=== PATIENT | female | born 1990 | race Caucasian/White ===

== ENCOUNTER 2017-09-26 06:34 | Inpatient (IN) | payer SELFPAY ==
[~2017-09-26] VITALS: Ht 167.6 cm; Wt 63.6 kg
[2017-09-26] VITALS (19 sets, daily range): BP systolic 101–116; BP diastolic 55–72; PULSE 63–78; TEMP 97.8–99.6
[~2017-09-26 06:34] MED LIST: LOVENOX 3030 MG/0.3 IJ; MOTRIN 600600 MG/TAB PO; PERCOCET 325 MG1 TA2 PO; PRENATAL VITAMI1 TAB PO
[2017-09-26 11:23] LABS: BASO % 0.3 % (0.0-2.0); EOS # 0.2 (0.0-0.7); EOS % 1.8 % (0-4.0); GRAN # 6.4 (1.4-6.5); GRAN % 70.6 % (42.2-75.2); LYMPH % 21.6 % (20.0-51.0); MEAN CELL VOLUME 82 fl (80.0-100.0); MEAN CORPUSCULAR HGB CONC 34 g/dl (33.0-37.0); MEAN PLATELET VOLUME 11.3 fl (7.4-10.4); MONO # 0.5 (0.1-0.6); MONO % 5.3 % (1.7-9.3); PLATELET COUNT 223 K/mm3 (130-400); RED BLOOD COUNT 4.15 M/mm3 (4.10-5.30)
[2017-09-26 11:28] LABS: HEMATOCRIT 34.2 % (37.0-47.0); HEMOGLOBIN 11.6 g/dl (12.5-16.0); MEAN CORPUSCULAR HEMOGLOBIN 28 pg (27.0-31.0)
== END 2017-09-26 19:50 | disposition home or self-care (01) | DRG 775 ==
LOC: LDR
PROVIDERS: Obstetrics & Gynecology
PROC: 10E0XZZ Delivery of Products of Conception, External Approach (ICD-10-PCS; principal; 2017-09-26)
PROC: 3E033VJ Introduction of Other Hormone into Peripheral Vein, Percutaneous Approach (ICD-10-PCS; 2017-09-26)
DX: O36.4XX0 Maternal care for intrauterine death, not applicable or unspecified (principal); O35.1XX0 Maternal care for (suspected) chromosomal abnormality in fetus, not applicable or unspecified; Z3A.14 14 weeks gestation of pregnancy; Z37.1 Single stillbirth
CPT/HCPCS: J2590; J7120

== ENCOUNTER 2019-12-10 07:25 | Inpatient (IN) | payer BC ==
[~2019-12-10] VITALS: Ht 167.6 cm; Wt 74.1 kg
[2019-12-10] VITALS (36 sets, daily range): BP systolic 95–138; BP diastolic 51–76; PULSE 54–97; TEMP 97.4–98.8
[~2019-12-10 07:25] MED LIST changes: +LOVENOX 3030 MG/0.3 SQ; +PRENATAL TABLET PO
[2019-12-10] MEDS ORDERED: NATURAL IRON65 MG (07:48)
--- NOTE | 2019-12-10 08:15 | NUR ---
G4L1 at 39.3 weeks gestation to LDR3 with for induction of labor. Patient changed into gown and wedged to left side in bed. EFMs explained and applied. FHR 125 bpm and reactive. Irregular CTX per toco. VSS. Assessment completed and consents signed. 0800 IV started in left hand with labs drawn from site. LR infusing per protocol. Plan of care reviewed with patient and spouse. Call light within reach.
--- NOTE | 2019-12-10 08:30 | NUR ---
Pitocin started at 2mu per orders and protocol.
[2019-12-10 08:38] LABS: BASO % 0.3 % (0.0-2.0); EOS # 0.1 (0.0-0.7); GRAN # 7.5 (1.4-6.5); GRAN % 72.9 % (42.2-75.2); HEMOGLOBIN 11.9 g/dl (12.5-16.0); LYMPH % 19.2 % (20.0-51.0); MEAN CELL VOLUME 90 fl (80.0-100.0); MEAN CORPUSCULAR HEMOGLOBIN 31 pg (27.0-31.0); MEAN CORPUSCULAR HGB CONC 35 g/dl (33.0-37.0); MEAN PLATELET VOLUME 12.1 fl (7.4-10.4); MONO # 0.6 (0.1-0.6); MONO % 6.2 % (1.7-9.3); PLATELET COUNT 200 K/mm3 (130-400); RED BLOOD COUNT 3.83 M/mm3 (4.10-5.30); REDCELL DISTRIBUTION WIDTH-CV 13.5 % (11.5-14.5)
[2019-12-10 08:45] LABS: HEMATOCRIT 34.5 % (37.0-47.0)
--- NOTE | 2019-12-10 08:45 | NUR ---
Dr. Souza to room, reviews FHR tracing, SVE with AROM. /-2 with small amount of clear fluid noted. Plan of care reviewed.
--- NOTE | 2019-12-10 11:45 | NUR ---
Patient more uncomfortable with contractions, tense and breathing through them. Patient requesting epidural. IVF bolus started. CODING VALIDATOR notified.
--- NOTE | 2019-12-10 12:12 | NUR ---
1204 SEAN Westbrook to room to place epidural. Single shot administered at 1212 by SEAN Westbrook. Test dose administered at 1214 by SEAN Westbrook. See anesthesia record for details of procedure.
--- NOTE | 2019-12-10 14:46 | NUR ---
1420 Patient pushing with contractions, Dr. Souza on unit. 1435 Dr. Souza to room, patient prepped for delivery, continues to push with contractions. 1446 Spontaneous vaginal delivery of viable male infant by Dr. Souza. Cord clamped and cut and to the care of the nursery RN. 1449 Spontaneous delivery of placenta by Dr. Souza. Pitocin infusing at 333ml/hr per orders and protocol. Fundus firm, lochia WNL. Repair of 2nd degree laceration by Dr. Souza.
[2019-12-11 01:45] VITALS: BP 107/55; PULSE 69; TEMP 98
[2019-12-11] MEDS ORDERED: IBU600 MG PO (08:04)
[2019-12-11] MEDS ORDERED: PERCOCET 325 MG1 TA2 PO (08:04)
[2019-12-11 08:53] VITALS: BP 112/78; PULSE 72; TEMP 98.1
--- NOTE | 2019-12-11 09:32 | NUR ---
Initial visit; Parents thanked for offering congratulations for the of their son. thanked family for choosing [facility].
== END 2019-12-11 17:33 | disposition home or self-care (01) | DRG 806 ==
LOC: LDR 07:25 → OB 17:48
PROVIDERS: ADMIT Obstetrics & Gynecology
PROC: 10E0XZZ Delivery of Products of Conception, External Approach (ICD-10-PCS; principal; 2019-12-10)
PROC: 0KQM0ZZ Repair Perineum Muscle, Open Approach (ICD-10-PCS; 2019-12-10)
DX: O26.23 Pregnancy care for patient with recurrent pregnancy loss, third trimester (principal); E72.12 Methylenetetrahydrofolate reductase deficiency; Z37.0 Single live birth; O70.1 Second degree perineal laceration during delivery; Z3A.39 39 weeks gestation of pregnancy; O99.284 Endocrine, nutritional and metabolic diseases complicating childbirth
CPT/HCPCS: J1650; J2590; J2795; J7120

== ENCOUNTER → 2020-05-28 | Outpatient (CLI) | payer BC, OTHER ==
[~2020-05-28] MED LIST changes: +IBU600 MG PO; +NATURAL IRON65 MG
== END ==
LOC: ZCOL.LAB 07:40
DX: Z20.828 Contact with and (suspected) exposure to other viral communicable diseases (principal)

== ENCOUNTER 2021-09-30 01:07 | Inpatient (IN) | payer BC ==
[~2021-09-30] VITALS: Ht 167.6 cm; Wt 69.5 kg
[2021-09-30] VITALS (28 sets, daily range): BP systolic 97–149; BP diastolic 56–119; PULSE 68–122; TEMP 97.5–98.5
[2021-09-30 01:52] LABS: BASO % 0.3 % (0.0-2.0); EOS # 0.1 K/mm3 (0.0-0.7); EOS % 1.1 % (0-4.0); GRAN % 64.6 % (42.2-75.2); HEMATOCRIT 39.2 % (37.0-47.0); HEMOGLOBIN 13.3 g/dl (12.5-16.0); LYMPH # 3.3 K/mm3 (1.2-3.4); LYMPH % 26.3 % (20.0-51.0); MEAN CELL VOLUME 87 fl (80.0-100.0); MEAN CORPUSCULAR HEMOGLOBIN 30 pg (27.0-31.0); MEAN CORPUSCULAR HGB CONC 34 g/dl (33.0-37.0); MEAN PLATELET VOLUME 12.3 fl (7.4-10.4); MONO # 0.9 K/mm3 (0.1-0.6); MONO % 7.1 % (1.7-9.3); PLATELET COUNT 221 K/mm3 (130-400); RED BLOOD COUNT 4.49 M/mm3 (4.10-5.30); REDCELL DISTRIBUTION WIDTH-CV 14.7 % (11.5-14.5)
[2021-09-30] MEDS ORDERED: [UNRECOGNIZED DRUG - OTHER] (02:26)
[2021-09-30] MEDS ORDERED: HEPARIN SOD U (02:26)
[2021-09-30] MEDS ORDERED: LOVENOX 4040 MG/0.4 SQ (02:28)
[2021-09-30 02:48] LABS: INR 0.9 (0.8-3.0); PARTIAL THROMBOPLASTIN TIME 27.5 SECONDS (26.0-37.0); PROTHROMBIN TIME 10.2 SECONDS (9.7-12.8)
--- NOTE | 2021-09-30 02:51 | NUR ---
0112 - Pt and spouse arrive ambulatory to unit. Pt changes into gown, EFM explained and placed. Pt reports contractions starting around 2200, denies leaking of fluid and vaginal bleeding, reports good movement. VS taken. SVE 8/100/0 with bulgy bag. Pt alyssa with moderate-strong contractions every 2-[address] Blanco notified, orders received for admission. Pt requesting epidural, T SEAN Mendoza notified. 0130 - IV started in left forearm, labs drawn, LR started per protocol. 0150 - T Kelly CLAIM SPECIALIST to bedside. Pt repositioned for epidural placement. 0206 - Epidural test dose given. 0210 - Pt repositioned following epidural. 0220 - Pt reporting pressure with contractions. SVE AL/100/0 with bulgy bag. Pt repositioned for comfort with left wedge.
--- NOTE | 2021-09-30 06:53 | NUR ---
0330 - Intermittent late and variable decelerations noted. Patient repositioned WR. 0401 - SVE /0? Very bulgy bag. Dr. Blanco called to come evaluate and discuss AROM per pt request. 0407 - Dr. Blanco to pt bedside. SVE per physician /0. AROM discussed with pt, pt consent obtained. AROM at 0410 with clear fluid noted. 0429 - Dr. Blanco pushed with pt for 1 contraction, noted that some cervix still remains. Pt repositioned in bishnu position at 0431. 0503 - Intermittent variables with occasional late decelerations noted. SVE unchanged, small amount of anterior cervix remains. Pt reposition sitting upright in bed. 0521 - Variable decelerations continue with contractions. SVE /0. 0523 - Pushing started with contractions. 0535 - Deep variables noted with pushing. FHR returns to baseline quickly between and continues to have moderate variablility with accelerations. 0540 - Pt in discomfort with contractions, Beatriz Mendoza CRNA called to bedside. 0542 - Dr. Blanco and ALYSSA Sims called to bedside for delivery. 0543 - T Kelly to bedside to bolus epidural. 0544 - Dr. Blanco to bedside. Bed broken down and pt repositioned for delivery. 0547 - Viable male delivered spontaneously and placed on mother's abdomen where dried and stimulated. Care of infant transferred to ALYSSA Sims of nursery. 0552 - Placenta spontaneously delivered. Fundal massage provided by Dr. Blanco. Per physician, perineum intact. pitocin started per protocol. Bed replaced, pt repositioned for comfort. Free flow bleeding noted, fundal massage provided. Several small clots expressed with moderate flow, fundus firm. Pericare provided, clean pad and ice pack placed on perineum. Pt denies needs and need for pain medication at this time.
[2021-10-01 00:20] VITALS: BP 105/67; PULSE 90; TEMP 97.8
[2021-10-01 04:30] VITALS: BP 108/67; PULSE 76; TEMP 97.9
[2021-10-01 07:45] VITALS: BP 119/74; PULSE 94; TEMP 98.3
[2021-10-01] MEDS ORDERED: IBU600 MG PO (08:16)
--- NOTE | 2021-10-01 09:22 | NUR ---
Initial visit; Parents thanked Testing Coordinator for offering congratulations and God's blessings for the of their son. Testing Coordinator thanked family for choosing [facility].
--- NOTE | 2021-10-01 15:12 | NUR ---
RN took over care of this pt. at 1437
[2021-10-01 16:32] VITALS: BP 94/47; PULSE 82; TEMP 97.8
[2021-10-01 20:30] VITALS: BP 105/71; PULSE 89; TEMP 97.9
[2021-10-02 09:30] VITALS: BP 111/63; PULSE 86; TEMP 97.8
== END 2021-10-02 11:57 | disposition home or self-care (01) | DRG 806 ==
LOC: LDR 01:07 → OB 08:00
PROVIDERS: ADMIT Obstetrics & Gynecology
PROC: 10E0XZZ Delivery of Products of Conception, External Approach (ICD-10-PCS; principal; 2021-09-30)
PROC: 10907ZC Drainage of Amniotic Fluid, Therapeutic from Products of Conception, Via Natural or Artificial Opening (ICD-10-PCS; 2021-09-30)
DX: O99.284 Endocrine, nutritional and metabolic diseases complicating childbirth (principal); E72.12 Methylenetetrahydrofolate reductase deficiency; Z37.0 Single live birth; D68.59 Other primary thrombophilia; O99.12 Other diseases of the blood and blood-forming organs and certain disorders involving the immune mechanism complicating childbirth; O69.81X0 Labor and delivery complicated by cord around neck, without compression, not applicable or unspecified; O99.02 Anemia complicating childbirth; D64.9 Anemia, unspecified; O36.5930 Maternal care for other known or suspected poor fetal growth, third trimester, not applicable or unspecified; Z3A.39 39 weeks gestation of pregnancy
CPT/HCPCS: J1650; J2590; J2795; J7120